=== PATIENT | female | born 1975 ===

== ENCOUNTER 2018-01-03 11:04 | Outpatient (CLI) | payer OTHER | END 2018-01-03 11:14 | disposition home or self-care (01) | LOC: LAB 11:04 | DX: R50.9 Fever, unspecified (principal) ==

== ENCOUNTER → 2018-01-03 | Outpatient (CLI) | payer OTHER ==
[~2018-01-03] MED LIST: COZAAR50 MG; FIORICET 50-321 EACH PO
== END | disposition home or self-care (01) ==
LOC: PPHC 09:36
DX: B34.9 Viral infection, unspecified (principal)